=== PATIENT | female | born 1960 | race Caucasian/White ===

== ENCOUNTER → 2016-11-01 | Outpatient (CLI) | payer OTHER ==
[~2016-11-01] MED LIST: ACET-749 PO; B-COTAB53 PO; CETI10TA84 PO; DXY100 PO; MAGN250T8 PO; NAPR1TAB9 PO; PSEU30TA20 PO; VNTHFA/IN INH
[2016-11-01 17:26] LABS: LYME DISEASE AB IGG NEG (NEG); LYME DISEASE AB IGM NEG (NEG)
[2016-11-12 19:28] LABS: ANAPLASMA PHAGOCYTOPHIL IGM <1:20 (<1:20); ANAPLASMA PHAGOCYTOPHIL INTERP Past Infection
== END | disposition home or self-care (01) ==
LOC: C.LAB1850 13:33
PROVIDERS: ATTEND Internal Medicine Infectious Disease
DX: A77.49 Other ehrlichiosis (principal); A69.20 Lyme disease, unspecified

== ENCOUNTER 2017-01-22 12:32 | Emergency (ER) | payer OTHER ==
[~2017-01-22] VITALS: Ht 167.6 cm; Wt 70.4 kg
[2017-01-22 12:42] VITALS: TEMP 37.2; Ht 167.6 cm; Wt 70.4 kg
[2017-01-22] MEDS ORDERED: PSEU30TA20 PO (13:08)
[2017-01-22] MEDS ORDERED: MELATAB2 PO (13:09)
[2017-01-22] MEDS ORDERED: CONJ.6255 PO (13:09)
[2017-01-22] MEDS ORDERED: SACC250C3 (13:09)
--- NOTE | 2017-01-22 13:29 | DIAGNOSTIC IMAGING REPORT ---
CT FACIAL BONES-MXILLOFAC WITHOUT CT DOSE: 514.37 mGycm CLINICAL HISTORY: Trauma. Left orbital hematoma. Bifrontal headache. COMPARISON STUDY: No previous studies for comparison. TECHNIQUE: Helical images were acquired in the transverse plane. The study was reviewed and analyzed on the independent 3-D workstation. A dose lowering technique was utilized adhering to the principles of ALARA. The pterygoid plates appear intact. The zygomatic arches appear intact. The globes appear intact. There is no evidence of orbital emphysema. The orbital vázquez and floor appear intact. The mandibular condyles appear intact. IMPRESSION: No facial fractures identified. Electronically signed by: Luis Newberry M.D. 01/22/2017 1:28 PM Dictated Date/Time: 01/22/2017 1:26 PM
--- NOTE | 2017-01-22 13:30 | DIAGNOSTIC IMAGING REPORT ---
CT HEAD WITHOUT CONTRAST (CT) CLINICAL HISTORY: Bifrontal headache. Left orbital hematoma TRAUMA COMPARISON STUDY: 09/20/2015 TECHNIQUE: Axial CT of the brain is performed from the vertex to the skull base. IV contrast was not administered for this examination. A dose lowering technique was utilized adhering to the principles of ALARA. CT DOSE: 638.56 mGycm FINDINGS: No intra or extra-axial mass lesions are visualized. There is no CT evidence of acute cortical infarction. There is no evidence of midline shift. There is no acute hemorrhage. No calvarial fractures are visualized. There is no evidence of pathologic ventricular dilatation. There is no evidence of acute sinusitis IMPRESSION: No acute intracranial findings Electronically signed by: Luis Newberry M.D. 01/22/2017 1:29 PM Dictated Date/Time: 01/22/2017 1:28 PM
[2017-01-22 14:05] VITALS: BP 109/74; PULSE 59; O2SAT 99
--- NOTE | 2017-01-23 06:43 | EMERGENCY ROOM VISIT NOTE ---
ED Visit Note First contact with patient: 12:46 Chief Complaint: I'm getting a black eye. History of Present Illness: Ms. Guillory is a 56-year-old white female who ambulates into the ED complaining of ecchymosis around her left eye. Patient reports that she noticed some bruising developing over the medial aspect of the left upper eyelid last night. 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 She reports this morning she started noticing a pressure sensation in the left upper eyelid and the discomfort was mild. While at work she reports she started feeling a spreading of the pressure sensation from the left orbit area to the right orbit area with extension into the bifrontal areas. She rates this pressure sensation 5/10. As noted it is radiating into the right supraorbital area. Her discomfort worsens with palpation. She has not identified any alleviating factors related to the discomfort. She reports that she has back issues and she took a Tylenol 3 tablet without relief of her discomfort. Associated with her discomfort she reports she is having some dizziness that started this morning with the pain increase. She denies visual changes, hearing changes, difficulty speaking, difficulty swallowing, difficulty ambulating/coordinating body movements, neck pain, back pain, chest pain, shortness of breath, abdominal pain, nausea, vomiting, extremity weakness/numbness/tingling. Review of Systems: As noted above in history of present illness. 8 body systems were reviewed and found to be negative as noted above. Past Medical History: As previously noted and dyslipidemia, Lyme's meningitis. Current Medications: Medications Dose Route/Sig Max Daily Dose Days Date Category Florastor (Saccharomyces Boulardii) 250 Mg Cap 01/22/17 Reported Prempro 0.625MG/2.5MG (Estrogens Conj/Medroxyprogest Acet) Tab Unknown Dose PO DAILY 01/22/17 Reported Melatonin Maximum Strengt (Melatonin) 5 Mg Tab Unknown Dose PO HS 30 01/22/17 Reported Sudafed (Pseudoephedrine HCl) 30 Mg Tab 30 Mg PO DAILY 01/22/17 Reported Ventolin Hfa (Albuterol) 200 Puffs/90001 Mcg Aers 2 Puff INH Q4 PRN 09/20/15 Rx Magnesium (Magnesium Oxide (Mg Supplement) 250 Mg Tab 250 Mg PO DAILY 09/20/15 Rx Tylenol W/Codeine #3 (Acetaminophen/Codeine Phosphate) 300 Mg/30 Mg Tab 1 Tab PO UD PRN 09/20/15 Reported Zyrtec (Cetirizine HCl) 10 Mg Tab 10 Mg PO DAILY 09/20/15 Reported Aleve (Naproxen) 220 Mg Tab 220 Mg PO 2-3XD 09/20/15 Reported Allergies to Medications: Tramadol. Social History: Patient is currently employed; she feels safe in her home environment; she denies tobacco and alcohol use. Physical Examination: Vital Signs: Date Time Temp Pulse Resp B/P (MAP) Pulse Ox O2 Delivery O2 Flow Rate FiO2 01/22/17 14:05 59 109/74 99 01/22/17 12:42 37.2 67 18 126/88 98 Room Air GENERAL: 56-year-old female in mild distress due to pain, nontoxic-appearing, afebrile and hemodynamically stable. NEUROLOGICAL: Awake, alert and oriented to person, place and time. Answering questions appropriately and following commands. Normal gait. Good hand eye coordination. Romberg test negative. Pronator drift test negative. Cranial nerves II through XII grossly intact. Short-term and long-term recall. Able to spell and count backwards. Normal rapid alternate movements of the hands and fingers. SKIN: Warm, dry and pink. HEENT: Atraumatic and normocephalic. Skull: No bony deformity, depressions, tenderness or ecchymosis. No felix signs. There is swelling and bruising above the left eye but not the right eye. No hemotympanum. Face: Bruising as noted above. There is moderate tenderness throughout the upper portion of the left orbit and mild tenderness over the right orbit. I do not appreciate any bony deformity or crepitus. PERRLA. EOMI without nystagmus. Sclera white and conjunctiva pink without drainage. No foreign bodies noted under the eyelids are embedded in the cornea. Anterior chamber is clear. No malocclusion. Airway patent. No intraoral trauma. Speech is normal and clear. Trachea midline. No jugular venous distention. BACK: No tenderness over the bony cervical and thoracic spine. Full range of motion of the cervical spine. EXTREMITIES: Moves all extremities well on command and with purpose. All distal neurovascular statuses are intact and equal bilaterally. ED Course: Patient is assessed as noted above. Patient's medication list was reviewed. Head CT: Was reviewed by myself and read by the radiologist showing no acute intracranial abnormalities or skull fractures or acute sinusitis. Facial CT: Was reviewed by myself and read by the radiologist showing no facial fractures. Patient was offered pain medication and refused. Patient was educated about today's findings and instructed on her treatment plan ; she verbalizes understanding and agreement with this plan. Clinical Impression: Left orbital contusion. Questionable closed head injury. Disposition: Patient discharged home in stable condition; prior to departure she was reassessed and subjectively reported she was feeling better and rated her discomfort 3/10. Plan: Patient was encouraged alternate ibuprofen and acetaminophen as needed for pain every 3 hours. Patient was encouraged use ice on the area for pain and swelling. Patient was encouraged follow-up with family physician for recheck if no better in 4-5 days. Patient was educated on signs of worsening head injury and encouraged to return to the ED for any signs of worsening head injury or any new/concerning symptoms.
== END 2017-01-22 14:06 | disposition home or self-care (01) ==
LOC: C.EDB 12:34 → C.EDD 14:06
DX: S05.12XA Contusion of eyeball and orbital tissues, left eye, initial encounter (principal); R42 Dizziness and giddiness; E78.5 Hyperlipidemia, unspecified; Z86.19 Personal history of other infectious and parasitic diseases; X58.XXXA Exposure to other specified factors, initial encounter

== ENCOUNTER 2017-01-24 11:57 | Emergency (ER) | payer OTHER ==
[~2017-01-24] VITALS: Ht 167.6 cm; Wt 68.4 kg
[~2017-01-24 11:57] MED LIST changes: -B-COTAB53 PO; +CONJ.6255 PO; -DXY100 PO; +MELATAB2 PO; +SACC250C3
[2017-01-24 12:01] VITALS: TEMP 36.9; Ht 167.6 cm; Wt 68.4 kg
[2017-01-24 13:22] VITALS: BP 124/74; PULSE 71; O2SAT 98
--- NOTE | 2017-01-25 14:53 | EMERGENCY ROOM VISIT NOTE ---
ED Visit Note First contact with patient: 12:21 Chief Complaint: I just want to get rechecked. History of Present Illness: Ms. Guillory is a 56-year-old white female who ambulates into the ED who is requesting a recheck for a facial contusion and closed head injury symptoms. I had seen Mr. Guillory 2 days ago for evaluation of a facial contusion over the left orbit and a questionable closed head injury. She was not exactly sure of the mechanism of injury of her facial contusion but believe she was struck in the head by her dog. At that time she was neurologically intact and had a small contusion in the medial aspect of the left eye. A head CT and a facial CT was performed and were negative. She was educated on signs of worsening head injury and encouraged to follow-up with her PCP or return to the ED. Patient reports she took one day of work and rested at home and reports she was feeling better. 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 She also reports she has noticed that the bruising on her upper eyelid is getting larger. Additionally she is still complaining of pressure in the left frontal and orbital area. She does not rate this discomfort. She does not feel that is worse than previous but she does feel though is mild radiation towards her ear on the left. She has not identified any aggravating or alleviating factors related to this discomfort. She has not taken any medications for this discomfort prior to arrival at the hospital but reports she has been using an ice bag. She denies dizziness, lightheadedness, visual changes, hearing changes, difficulty speaking, difficulty swallowing, difficulty ambulating/coordinating body movements, neck pain, extremity weakness/numbness/tingling. Review of Systems: As noted above in history of present illness. Past Medical History: Chronic neck pain, Lyme's meningitis, dyslipidemia Current Medications: Medications Dose Route/Sig Max Daily Dose Days Date Category Florastor (Saccharomyces Boulardii) 250 Mg Cap 01/22/17 Reported Prempro 0.625MG/2.5MG (Estrogens Conj/Medroxyprogest Acet) Tab Unknown Dose PO DAILY 01/22/17 Reported Melatonin Maximum Strengt (Melatonin) 5 Mg Tab Unknown Dose PO HS 30 01/22/17 Reported Sudafed (Pseudoephedrine HCl) 30 Mg Tab 30 Mg PO DAILY 01/22/17 Reported Ventolin Hfa (Albuterol) 200 Puffs/17215 Mcg Aers 2 Puff INH Q4 PRN 09/20/15 Rx Magnesium (Magnesium Oxide (Mg Supplement) 250 Mg Tab 250 Mg PO DAILY 09/20/15 Rx Tylenol W/Codeine #3 (Acetaminophen/Codeine Phosphate) 300 Mg/30 Mg Tab 1 Tab PO UD PRN 09/20/15 Reported Zyrtec (Cetirizine HCl) 10 Mg Tab 10 Mg PO DAILY 09/20/15 Reported Aleve (Naproxen) 220 Mg Tab 220 Mg PO 2-3XD 09/20/15 Reported Allergies to Medications: Tramadol. Social History: Patient is currently employed; she feels safe in her home environment; she denies tobacco use. Physical Examination: Vital Signs: Date Time Temp Pulse Resp B/P (MAP) Pulse Ox O2 Delivery O2 Flow Rate FiO2 01/24/17 13:22 71 16 124/74 98 01/24/17 12:01 36.9 64 18 127/85 97 GENERAL: 56-year-old female in mild distress due to pain, nontoxic-appearing, afebrile and hemodynamically stable. NEUROLOGICAL: Awake, alert and oriented to person, place and time. Answering questions appropriately and following commands. Normal gait. Good hand eye coordination. Cranial nerves II through XII grossly intact. Normal heel lehman test. Normal rapid alternate movements. Negative Romberg. Good short-term and long-term recall. SKIN: Warm, dry and pink. Face: Patient's left upper eyelid contusion shows some spreading laterally but the ecchymotic area is starting to resolve. HEENT: Atraumatic and normocephalic. Skull: Patient continues to have mild tenderness over the left frontal area primarily over the supraorbital ridge. Once again no bony deformity or crepitus is palpable. There is no felix signs. Face: Still no inferior orbital tenderness. No malocclusion. Airway patent. Speech is normal and clear. PERRLA. EOMI down nystagmus. BACK: No tenderness over the bony cervical spine. Full range of motion of the cervical spine. EXTREMITIES: Moves all extremities well on command and with purpose. All distal neurovascular statuses are intact and equal bilaterally. ED Course: Patient is assessed as noted above. Patient's medication list was reviewed. I did inform the patient I thought there was no worsening of her head injury symptoms but she was offered a CT and she refused. Patient was educated about today's findings and instructed on her treatment plan ; she verbalized understanding and agreement with this plan. Clinical Impression: Mild concussion. Disposition: Patient discharged home in stable condition;; prior to departure she was reassessed and subjectively reported she was feeling the same. Plan: Comfort measures were reiterated with the patient including use of ice for pain and swelling and ibuprofen or acetaminophen as needed for pain. Patient was encouraged to continue to rest for the next 48 hours. Patient was encouraged to follow-up with [facility]. Patient was encouraged to watch for signs of worsening head injury, if her symptoms would become constant and severe or any new/concerning symptoms.
== END 2017-01-24 13:18 | disposition home or self-care (01) ==
LOC: C.EDD 12:30
DX: S06.0X0A Concussion without loss of consciousness, initial encounter (principal); X58.XXXA Exposure to other specified factors, initial encounter; E78.5 Hyperlipidemia, unspecified